=== PATIENT | female | born 1965 | race Caucasian/White ===

== ENCOUNTER 2018-01-10 01:27 | Day surgery (SDC) | payer OTHER ==
[2018-01-10] MEDS ORDERED: PROPOFOL 10 MG/ML VIAL IV ONE (01:28)
[2018-01-10] MEDS ORDERED: KETOROLAC 30 MG/ML VIAL IVP ONE (01:28)
[2018-01-10] MEDS ORDERED: GLYCOPYRROLATE 0.2 MG/ML ML IV ONE (01:28)
[2018-01-10] MEDS ORDERED: ROCURONIUM BROMIDE 50MG/5ML VIAL IV ONE (01:28)
[2018-01-10] MEDS ORDERED: BUPIVACAINE 0.25% W/EPI MPF 30ML VIAL IVP ONE (01:28)
[2018-01-10] MEDS ORDERED: FENTANYL PF 100MCG/2ML VIAL IV ONE (01:28)
[2018-01-10] MEDS ORDERED: NEOSTIGMINE 1 MG/1 ML,10ML VIAL IV ONE (01:28)
[2018-01-10] MEDS ORDERED: ACETAMINOPHEN 1,000 MG/100 ML BTL IV ONE (01:28)
[2018-01-10] MEDS ORDERED: MIDAZOLAM HCL 2MG/2ML VIAL IV ONE (01:28)
[2018-01-10] MEDS ORDERED: SEVOFLURANE 250 ML INH ONE (01:28)
[2018-01-10] MEDS ORDERED: MECLIZINE 25 MG TABLET PO ONE (01:28)
[2018-01-10] MEDS ORDERED: SUCCINYLCHOLINE 20 MG/ML 10ML IVP ONE (01:28)
[2018-01-10] MEDS ORDERED: METOCLOPRAMIDE HCL 10 MG/2 ML VIAL IVP ONE (01:28)
[2018-01-10] MEDS ORDERED: LIDOCAINE 2% MDV (20MG/ML) 20ML VIAL IV ONE (01:28)
[2018-01-10] MEDS ORDERED: METOCLOPRAMIDE 10 MG TABLET PO ONE (01:28)
[2018-01-10] MEDS ORDERED: FAMOTIDINE 20MG TABLET PO ONE (01:28)
[2018-01-10] MEDS ORDERED: ONDANSETRON HCL IV 4 MG/2 ML VIAL IVP ONE ×2 (01:28→01:49)
[2018-01-10] MEDS ORDERED: MAGNESIUM HYDROXIDE/AL HYDROX 30 ML, LIDOCAINE VISC 2% 15ML 15 ML PO ONE ×2 (01:46)
--- NOTE | 2018-01-10 01:50 | Emergency Department Record ---
History of Present Illness - General Chief Complaint: Chest Pain Stated Complaint: CHEST PAIN Time Seen by Provider: 01/10/18 01:38 Source: Patient Mode of Arrival: Ambulatory Limitations: No limitations - History of Present Illness Initial Comments: The patient is here due to an episode of epigastric pain that occurred about 2 hours ago. The onset was at rest. The pain is described as severe with radiation to the back. She did have nausea, sweating and SOB with it at times. The patient did vomit once after the pain onset and did feel better. Now the pain has pretty much resolved. She has no hx of any cardiac issues and no hx of CP with exertion. MD Complaint: Other Onset/Timin -: Hour(s) Onset: After eating, During rest Pain Location: Epigastric Severity: Moderate Consistency: Now resolved Worsens With: Nothing - Related Data Home Medications Medication Instructions Recorded Confirmed Last Taken Atorvastatin Calcium 10 mg PO DAILY 01/10/18 01/10/18 Unknown Budesonide/Formoterol Fumarate 1 puff INH QPM 01/10/18 01/10/18 Unknown [Symbicort 80-4.5 Mcg Inhaler] Levothyroxine Sodium 50 mcg PO DAILY 01/10/18 01/10/18 Unknown Metoprolol Succinate [Toprol Xl] 50 mg PO DAILY 01/10/18 01/10/18 Unknown Allergies Allergy/AdvReac Type Severity Reaction Status Date / Time No Known Drug Allergies Allergy Verified 01/10/18 01:35 Travel Screening - Travel/Exposure Within Last 30 Days Have you traveled within the last 30 days?: No - Travel/Exposure Within Last Year Have you traveled outside the [place] in the last year?: No - Additonal Travel Details Have you been exposed to anyone with a communicable illness?: No - Travel Symptoms Symptom Screening: None Review of Systems Constitutional: Denies: Chills, Fever Eyes: Denies: Eye discharge ENT: Denies: Congestion Respiratory: Denies: Cough, Dyspnea Cardiovascular: Denies: Arrhythmia, Dyspnea on exertion Endocrine: Denies: Fatigue Gastrointestinal: Reports: Abdominal pain, Nausea, Vomiting. Denies: Diarrhea Genitourinary: Denies: Dysuria Musculoskeletal: Denies: Arthralgia Past Medical History - SOCIAL HISTORY Smoking Status: Current every day smoker Alcohol Use: None Drug Use: None - RESPIRATORY Hx Respiratory Disorders: No - CARDIOVASCULAR Hx Cardio Disorders: Yes Hx Hypertension: Yes - NEURO Hx Neuro Disorders: No - GI Hx GI Disorders: No - Hx Genitourinary Disorders: No - ENDOCRINE Hx Endocrine Disorders: Yes Hx Thyroid Disease: Yes - MUSCULOSKELETAL Hx Musculoskeletal Disorders: No - PSYCH Hx Psych Problems: No - HEMATOLOGY/ONCOLOGY Hx Hematology/Oncology Disorders: No Family Medical History Any Significant Family History?: No Family Hx Comment (NOT TO BE USED IN PLACE OF ITEMS BELOW): father had open heart surgery. CA-sister Physical Exam - General General Appearance: Alert, Oriented x3, Cooperative, No acute distress - Head Head exam: Atraumatic, Normocephalic, Normal inspection - Eye Eye exam: Normal appearance, PERRL - ENT Throat exam: Normal inspection. negative: Tonsillar erythema, Tonsillar exudate - Neck Neck exam: Normal inspection, Full ROM. negative: Tenderness - Respiratory Respiratory exam: Normal lung sounds bilaterally. negative: Respiratory distress - Cardiovascular Cardiovascular Exam: Regular rate, Normal rhythm, Normal heart sounds - GI/Abdominal GI/Abdominal exam: Soft, Normal bowel sounds. negative: Tenderness - Extremities Extremities exam: Normal inspection, Full ROM, Normal capillary refill. negative: Tenderness Image of Full Body: 1 - Area of pain and tenderness. - Neurological Neurological exam: Alert. negative: Motor sensory deficit Course Vital Signs 01/10/18 01:28 Temperature 97.6 F Pulse Rate 58 L Respiratory 20 Rate Blood Pressure 159/94 Pulse Ox 99 - Reevaluation(s) Reevaluation #1: The patient states the pain in the epigastric area did return. Now it is tender in the area also. We will give her some Dilaudid for pain. 01/10/18 02:07 Reevaluation #2: The patient did develop more of the epigastric pain. It is a lot better now after Dilaudid and a GI cocktail. I did do a 2nd EKG during the pain and it appears WNL and exactly like the first EKG. I do believe the pain is from the patient's gallbladder and will most likely keep the patient in the ER for an US at 7am. 01/10/18 02:25 Reevaluation #3: The patient is doing well. The CT did demonstrate gallstones and the pain did return earlier but did resolve with a 2nd dose of Dilaudid. The patient will receive an abdominal US this AM and then possibly a surgical consult. 01/10/18 06:26 Reevaluation #4: I did discuss the case with Dr. Summers and he is aware of the patient and the US this AM. The patient's care will be turned over to Dr. Waddell at 7am due to shift change. 01/10/18 06:43 Medical Decision Making - Data Complexity MDM Data: Labs Ordered and/or Reviewed, X-Ray Ordered and/or Reviewed, EKG Ordered and/or Reviewed - Lab Data Result diagrams: 01/10/18 01:30 01/10/18 01:30 - EKG Data -: EKG Interpreted by Me EKG: No Acute Changes, Normal EKG - Radiology Data Radiology results: Report reviewed (CT: Gallstones, O/W neg.) Disposition Forms: Patient Portal Access Quality - Quality Measures Quality Measures: N/A - Blood Pressure Screening View Details: Yes Does Patient Have Any of the Following: No Blood Pressure Classification: Hypertensive Reading Systolic Measurement: 159 Diastolic Measurement: 94 Screening for High Blood Pressure: < First Hypertensive BP, F/U Documented > [ [id number]] First Hypertensive Follow-up Interventions: Referral to alternative/primary care provider.
[2018-01-10 01:52] LABS: BASO % 0.3 % (0-6); EOS % 3.6 % (0-6); HEMATOCRIT 41.5 % (35.0-47.0); HEMOGLOBIN 13.7 gm/dl (11.6-16.0); LYMPH % 22.8 % (16-45); MEAN PLATELET VOLUME 9.3 fl (7.4-10.4); MONO % 6.3 % (0-9); PLATELET COUNT 292 K/uL (130-400); RED BLOOD COUNT 4.56 M/uL (3.80-5.40); RED CELL DISTRIBUTION WIDTH 12.4 % (11.5-14.5); WHITE BLOOD COUNT W/O DIFF 11.2 K/uL (4.2-12.2)
[2018-01-10 02:03] LABS: INR 0.9; PARTIAL THROMBOPLASTIN TIME 26.6 SECONDS (24.5-39.1)
[2018-01-10] MEDS ORDERED: HYDROMORPHONE HCL 2 MG/ML VIAL IVP ONE ×3 (02:08→08:23)
[2018-01-10 02:10] LABS: ALBUMIN 4.5 g/dL (4.0-5.0); ALKALINE PHOSPHATASE 78 U/L (35-104); ALT/SGPT 37 U/L (<33); AST/SGOT 65 U/L (10.0-35.0); BLOOD UREA NITROGEN 14 mg/dL (6-20); CREATININE 0.5 mg/dL (0.5-0.9); EST GLOMERULAR FILTRATION RATE > 60 mL/min; GLUCOSE,RANDOM 109 mg/dL (74-109); LIPASE 44 U/L (13-60); TOTAL PROTEIN 7.2 g/dL (6.6-8.7)
[2018-01-10 02:11] LABS: BILIRUBIN,DIRECT < 0.2 mg/dL (0-0.3)
[2018-01-10 02:24] LABS: CKMB 1.4 ng/mL (<3.77)
[2018-01-10 02:36] LABS: CREATINE PHOSPHOKINASE 61 U/L (26-192)
[2018-01-10 05:26] LABS: CKMB 1.3 ng/mL (<3.77)
--- NOTE | 2018-01-10 07:51 | Emergency Department Record ---
History of Present Illness - General Chief Complaint: Chest Pain Stated Complaint: CHEST PAIN Time Seen by Provider: 01/10/18 01:38 Source: Patient Mode of Arrival: Ambulatory Limitations: No limitations - History of Present Illness Initial Comments: 53 yo female patient signed out at 7am by Dr Neves. The chart, labs, and CT were reviewed The patient was seen and examined. She reports mild, persistent RUQ and Epigastric pain. She declines pain medication at this time. CT demonstrated multiple gall stones. Dr Neves contacted Dr Summers. US was ordered. Onset/Timin -: Hour(s) Location: Epigastric, RUQ Radiation: Back, Chest, Epigastric, RUQ Severity: Moderate Consistency: Now resolved Improves With: Nothing Worsens With: Eating - Related Data LMP (females 10-50): other Patient : No Home Medications Medication Instructions Recorded Confirmed Last Taken Atorvastatin Calcium 10 mg PO DAILY 01/10/18 01/10/18 Unknown Budesonide/Formoterol Fumarate 1 puff INH QPM 01/10/18 01/10/18 Unknown [Symbicort 80-4.5 Mcg Inhaler] Levothyroxine Sodium 50 mcg PO DAILY 01/10/18 01/10/18 Unknown Metoprolol Succinate [Toprol Xl] 50 mg PO DAILY 01/10/18 01/10/18 Unknown Allergies Allergy/AdvReac Type Severity Reaction Status Date / Time No Known Drug Allergies Allergy Verified 01/10/18 01:35 Travel Screening - Travel/Exposure Within Last 30 Days Have you traveled within the last 30 days?: No - Travel/Exposure Within Last Year Have you traveled outside the [place] in the last year?: No - Additonal Travel Details Have you been exposed to anyone with a communicable illness?: No - Travel Symptoms Symptom Screening: None Review of Systems Constitutional: Denies: Chills, Fever Eyes: Denies: Eye discharge ENT: Denies: Congestion Respiratory: Denies: Cough, Dyspnea Cardiovascular: Denies: Arrhythmia, Dyspnea on exertion Endocrine: Denies: Fatigue Gastrointestinal: Reports: Abdominal pain, Nausea, Vomiting. Denies: Diarrhea Genitourinary: Denies: Dysuria Musculoskeletal: Denies: Arthralgia Past Medical History - SOCIAL HISTORY Smoking Status: Current every day smoker Alcohol Use: None Drug Use: None - RESPIRATORY Hx Respiratory Disorders: No - CARDIOVASCULAR Hx Cardio Disorders: Yes Hx Hypertension: Yes - NEURO Hx Neuro Disorders: No - GI Hx GI Disorders: No - Hx Genitourinary Disorders: No - ENDOCRINE Hx Endocrine Disorders: Yes Hx Thyroid Disease: Yes - MUSCULOSKELETAL Hx Musculoskeletal Disorders: No - PSYCH Hx Psych Problems: No - HEMATOLOGY/ONCOLOGY Hx Hematology/Oncology Disorders: No Family Medical History Any Significant Family History?: No Family Hx Comment (NOT TO BE USED IN PLACE OF ITEMS BELOW): father had open heart surgery. CA-sister Physical Exam - General General Appearance: Alert, Oriented x3, Cooperative, No acute distress Limitations: No limitations - Head Head exam: Atraumatic, Normal inspection - Eye Eye exam: Normal appearance. negative: Conjunctival injection, Scleral icterus - ENT ENT exam: Normal exam Ear exam: Normal external inspection Nasal Exam: Normal inspection Mouth exam: Normal external inspection - Neck Neck exam: Normal inspection - Respiratory Respiratory exam: Normal lung sounds bilaterally. negative: Respiratory distress - Cardiovascular Cardiovascular Exam: Regular rate, Normal rhythm, Normal heart sounds - GI/Abdominal GI/Abdominal exam: Soft, Tenderness (tender RUQ and Epigastric but very soft) - Rectal Rectal exam: Deferred - exam: Deferred - Extremities Extremities exam: Normal inspection. negative: Pedal edema - Neurological Neurological exam: Alert, Oriented X3 - Psychiatric Psychiatric exam: Normal affect, Normal mood - Skin Skin exam: Dry, Intact, Normal color, Warm Course Vital Signs 01/10/18 01/10/18 01/10/18 01:28 02:18 03:19 Temperature 97.6 F Pulse Rate 58 L Pulse Rate [ Pension Agent ] Pulse Rate [ 62 58 L Pulse Ox Probe] Respiratory 20 20 20 Rate Blood Pressure 159/94 Blood Pressure 137/81 122/85 [Right Arm] Pulse Ox 99 95 98 01/10/18 01/10/18 05:15 06:43 Temperature Pulse Rate Pulse Rate [ 59 L Pension Agent ] Pulse Rate [ 59 L 70 Pulse Ox Probe] Respiratory 20 20 Rate Blood Pressure Blood Pressure 143/78 109/68 [Right Arm] Pulse Ox 98 96 - Reevaluation(s) Reevaluation #1: 01/10/18 08:23 The patient returned from US The pain is returning. 01/10/18 08:45 The US was reviewed. Multiple, large, non mobile stones with possible stone in the neck of the GB. CBD normal. The patient continues to have waves of pain. This was discussed with Dr Summers. He will plan on surgery this morning. The patient agrees with the plan for surgery. She has been NPO since 11pm. IVF were provided as well. Medical Decision Making - Lab Data Result diagrams: 01/10/18 01:30 01/10/18 01:30 Lab Results 01/10/18 01/10/18 01/10/18 Range/Units 01:30 01:30 01:30 WBC 11.2 (4.2-12.2) K/uL RBC 4.56 (3.80-5.40) M/uL Hgb 13.7 (11.6-16.0) gm/dl Hct 41.5 (35.0-47.0) % MCV 91.0 (81-97) fl MCH 30.0 (27-33) pg MCHC 33.0 (32-36) g/dl RDW 12.4 (11.5-14.5) % Plt Count 292 (130-400) K/uL MPV 9.3 (7.4-10.4) fl Gran % 67.0 (47-80) % Lymphocytes % 22.8 (16-45) % Monocytes % 6.3 (0-9) % Eosinophils % 3.6 (0-6) % Basophils % 0.3 (0-6) % PT 10.0 (9.5-12.1) SECONDS INR 0.9 APTT 26.6 (24.5-39.1) SECONDS Sodium 145 (136-145) mmol/L Potassium 3.6 (3.4-4.5) mmol/L Chloride 98 (98-107) mmol/L Carbon Dioxide 30.0 H (22-29) mmol/L Anion Gap 17.0 H (7-16) BUN 14 (6-20) mg/dL Creatinine 0.5 (0.5-0.9) mg/dL Estimated GFR > 60 mL/min Random Glucose 109 (74-109) mg/dL Calcium 9.4 (8.6-10.0) mg/dL Total Bilirubin 0.30 (0.2-1.0) mg/dL Direct Bilirubin < 0.2 (0-0.3) mg/dL AST 65 H (10.0-35.0) U/L ALT 37 H (<33) U/L Alkaline Phosphatase 78 (35-104) U/L Creatine Kinase 61 (26-192) U/L CK-MB (CK-2) 1.4 (<3.77) ng/mL Troponin T < 0.010 (0-0.010) ng/mL Total Protein 7.2 (6.6-8.7) g/dL Albumin 4.5 (4.0-5.0) g/dL Lipase 44 (13-60) U/L 01/10/18 01/10/18 Range/Units 01:46 05:03 WBC (4.2-12.2) K/uL RBC (3.80-5.40) M/uL Hgb (11.6-16.0) gm/dl Hct (35.0-47.0) % MCV (81-97) fl MCH (27-33) pg MCHC (32-36) g/dl RDW (11.5-14.5) % Plt Count (130-400) K/uL MPV (7.4-10.4) fl Gran % (47-80) % Lymphocytes % (16-45) % Monocytes % (0-9) % Eosinophils % (0-6) % Basophils % (0-6) % PT (9.5-12.1) SECONDS INR APTT (24.5-39.1) SECONDS Sodium (136-145) mmol/L Potassium (3.4-4.5) mmol/L Chloride (98-107) mmol/L Carbon Dioxide (22-29) mmol/L Anion Gap (7-16) BUN (6-20) mg/dL Creatinine (0.5-0.9) mg/dL Estimated GFR mL/min Random Glucose (74-109) mg/dL Calcium (8.6-10.0) mg/dL Total Bilirubin Cancelled (0.2-1.0) mg/dL Direct Bilirubin Cancelled (0-0.3) mg/dL AST Cancelled (10.0-35.0) U/L ALT Cancelled (<33) U/L Alkaline Phosphatase Cancelled (35-104) U/L Creatine Kinase (26-192) U/L CK-MB (CK-2) 1.3 (<3.77) ng/mL Troponin T < 0.010 (0-0.010) ng/mL Total Protein Cancelled (6.6-8.7) g/dL Albumin Cancelled (4.0-5.0) g/dL Lipase Cancelled (13-60) U/L Disposition Disposition: Discharge Clinical Impression: Biliary colic, Gall stones Disposition: Home, Self-Care Condition: (1) Good Additional Instructions: Discharged to outpatient surgery Forms: Patient Portal Access Time of Disposition: 08:47 Quality - Quality Measures Quality Measures: N/A - Blood Pressure Screening Does Patient Have Any of the Following: Active Dx of HTN Blood Pressure Classification: Hypertensive Reading Systolic Measurement: 159 Diastolic Measurement: 94 Screening for High Blood Pressure: Patient Exclusion, Hx of HTN [G9744]
[2018-01-10] MEDS ORDERED: 0.9 % SODIUM CHLORIDE 1,000 ML BAG IV ONE (07:59)
--- NOTE | 2018-01-10 10:12 | CT SCAN REPORT ---
EXAM: EMERGENCY CT OF THE ABDOMEN AND PELVIS WITHOUT CONTRAST HISTORY: EPIGASTRIC PAIN, ABDOMINAL AND BACK PAIN, ACID REFLUX. TECHNIQUE: Axial CT scan of the abdomen and pelvis was performed without oral or IV contrast. A preliminary report was provided by [facility]. Comparison: CT of the abdomen and pelvis 05/27/17. FINDINGS: There again appear to be multiple low attenuation gallstones in the gallbladder similar to before. No adjacent pericholecystic inflammatory change seen to suggest acute cholecystitis currently. There again appear to be some tiny currently nonobstructing intrarenal calculi bilaterally. No hydronephrosis or hydroureter is seen on either side. As such it is somewhat difficult to follow the entire course of both ureters in their nondilated state throughout the retroperitoneum and pelvis, but no definite ureteral calculus seen on either side and no bladder calculus evident. There again appears to be a low density peripelvic mass central portion of the right kidney incompletely evaluated without IV contrast, but appearing unchanged from before, but again measuring about 1.8 cm in size and presumably a renal cyst as previously reported. Evaluation of the bowel and viscera are quite limited without oral or IV contrast. Given this limitation, no definite hepatic, splenic, adrenal, pancreatic, or left renal mass identified. Postop changes right inguinal region again seen as before. Small periumbilical anterior abdominal wall hernia containing adipose tissue, but no bowel. I believe the appendix is visualized and appears of normal caliber with no appendicitis evident. The lung bases appear clear. No free intraperitoneal air or free intraperitoneal fluid identified. The stomach is quite distended currently. This is nonspecific and may represent a relative gastric ileus although clinical correlation as to any suspicion of gastric outlet obstruction suggested. No free intraperitoneal air or free intraperitoneal fluid evident. Degenerative disk disease in the lower lumbar spine. Mild lumbar levoscoliosis. IMPRESSION: 1. APPEARANCE CONSISTENT WITH NONCALCIFIED GALLSTONES IN THE GALLBLADDER BEFORE. 2. TINY BILATERAL NONOBSTRUCTING INTRARENAL CALCULI. NO DEFINITE HYDRONEPHROSIS OR URETERAL CALCULUS SEEN. 3. PROBABLE CENTRAL RIGHT RENAL CYST BEFORE. 4. SMALL PERIUMBILICAL ANTERIOR ABDOMINAL WALL HERNIA CONTAINING ADIPOSE TISSUE , BUT NO BOWEL. 5. POSTOP CHANGES RIGHT INGUINAL REGION BEFORE. 6. GASTRIC DISTENTION. 7. DEGENERATIVE CHANGES LOWER LUMBAR SPINE WITH A MILD LUMBAR LEVOSCOLIOSIS. JOB NUMBER: [id number] [facility]
--- NOTE | 2018-01-10 10:30 | ULTRASOUND REPORT ---
EXAM: COMPLETE ABDOMEN ULTRASOUND HISTORY: EPIGASTRIC PAIN, NONCALCIFIED GALLSTONES ON ABDOMEN CT FROM EARLIER TODAY. TECHNIQUE: Complete real-time ultrasound examination of the abdomen was obtained. Comparison: No prior abdomen ultrasound. Comparison is made with the abdomen CT from a short time earlier this morning on 01/10/18. FINDINGS: The pancreas appears negative with no pancreatic mass or peripancreatic fluid collection evident. The abdominal aorta appears negative with on aneurysm seen. The IVC was negative as seen. The liver appears negative with no hepatic mass or intrahepatic biliary dilatation seen. The right kidney measures 10.5 cm in length with no hydronephrosis evident. There is an approximately 1.8 cm sonolucent mass centrally in the right kidney consistent with a simple cyst, also noted on the CT from earlier today. Multiple echogenic foci with shadowing are seen within the gallbladder consistent with numerous gallstones. These obscure the posterior aspect of the gallbladder wall, but as visualized there is some mild diffuse prominence of the gallbladder wall. No actual pericholecystic fluid collection seen. The common duct is within normal limits in caliber. On one image there was a suggestion of a tiny common duct calculus although this was not consistently seen and, as mentioned earlier, no dilatation of the common duct is evident. The gallstones within the gallbladder for the most part did not move much when the patient was placed in different positions and there probably is a consistently seen stone in the region of the gallbladder neck. The left kidney measures 11 cm in length with no hydronephrosis evident. The spleen appears negative. IMPRESSION: 1. FAIRLY EXTENSIVE CHOLELITHIASIS PROBABLY INCLUDING A STONE CONSISTENTLY SEEN IN THE GALLBLADDER NECK. CLINICAL CORRELATION TO ACUTE CHOLECYSTITIS SUGGESTED. 2. NO BILIARY DILATATION SEEN. ON ONE IMAGE THERE WAS A SUGGESTION OF A SMALL CALCULUS IN THE LOWER COMMON DUCT ALTHOUGH NO DILATATION OF THE COMMON BILE DUCT EVIDENT. 3. APPROXIMATELY 1.8 CM PARAPELVIC RIGHT RENAL CYST ALSO SEEN ON THE CT FROM EARLIER TODAY. NO HYDRONEPHROSIS IN EITHER KIDNEY. 4. THE REMAINDER OF THE ABDOMEN ULTRASOUND APPEARED NEGATIVE. JOB NUMBER: [id number] [facility]
--- NOTE | 2018-01-11 13:40 | Operative Note ---
DATE OF SURGERY: 01/10/2018 Surgeon: Sinan Summers DO PREOPERATIVE DIAGNOSIS: Cholelithiasis with chronic cholecystitis. POSTOPERATIVE DIAGNOSIS: Cholelithiasis with chronic cholecystitis. OPERATION: Laparoscopic cholecystectomy. Indication: The patient is a 52-year-old female who is having ongoing right subcostal postprandial pain. She had a prior CT scan which did show cholelithiasis. She came into the ER last night with more pain. Repeat CT scan and ultrasound both were done. This did show what appeared to be cholelithiasis impacted in the neck of the gallbladder. She had a clinical history of recurrent biliary colic. We did discuss cholecystectomy versus medical management. She desired surgical intervention. Risks include but are not limited to bleeding, infection, ductal injury, possible conversion to open, postoperative bile leak. She understood this fully. PROCEDURE: Thereafter, consent was signed and questions answered. She was taken to the operating room and placed in a supine position. General anesthesia was administered per the department of anesthesia. The patient's abdomen was prepped and draped in the usual sterile fashion. Preop adequate timeout was performed. She did receive preoperative DVT prophylaxis as well as antibiotics. At this time, the infraumbilical region was anesthetized with a total of 5 mL of 0.25% Sensorcaine with epinephrine. A 2 cm infraumbilical incision was made. This was carried down to the anterior rectus fascia. This was incised. Raman clamps were placed on the fascial edges and brought up into the wound. Stay sutures of 0 Vicryl were placed. Posterior rectus sheath was identified and incised. The peritoneal cavity was entered bluntly. At this time, a 10 mm blunt Lianet port was placed. Adequate pneumoperitoneum was established. Under direct visualization, additional 5 mm epigastric and two 5 mm right subcostal ports were placed. The gallbladder was identified. It was retracted in a cephalad and lateral direction opening up the angle of Calot. The hepatocystic triangle was thoroughly dissected out. The distal half of the gallbladder was released from the cystic plate. The cystic duct and cystic artery were circumferentially skeletonized. We obtained a critical view of safety. The cystic artery was taken down with the Suman harmonic. The cystic duct was triply clipped cut in standard fashion. The gallbladder was then off the liver bed with the Suman harmonic. This was then retrieved through the umbilical port. The right upper quadrant was then rechecked and found to be hemostatic. No bleeding, no bile leak. No bowel injury noted. The patient was leveled out. Pneumoperitoneum was released. All ports were removed. The fascia was closed with 0 Vicryl in a [id number] fashion. The skin at all 4 ports was closed with 4-0 Vicryl. The patient was taken to the recovery room in satisfactory condition. FINDINGS AT THE TIME OF SURGERY: Chronic cholecystitis. CC: DO GERBER Germain
== END 2018-01-10 13:42 | disposition home or self-care (01) ==
LOC: ER 01:27 → SUR 09:30
PROVIDERS: ATTEND Surgery
DX: K80.10 Calculus of gallbladder with chronic cholecystitis without obstruction (principal); K21.9 Gastro-esophageal reflux disease without esophagitis; E78.00 Pure hypercholesterolemia, unspecified; J45.909 Unspecified asthma, uncomplicated; E03.9 Hypothyroidism, unspecified; F17.210 Nicotine dependence, cigarettes, uncomplicated
CPT/HCPCS: 74176; 76700; 80048; 80076; 82550; 82553; 83690; 84484; 85025; 85610; 85730; 93005; 93010; 96374; 96375; 96376; 99285; J0330; J1885; J2405; J2710; J2765; J3490; J7030

== ENCOUNTER 2018-07-14 10:56 | Day surgery (SDC) | payer OTHER ==
[2018-07-14] MEDS ORDERED: LIDOCAINE 2% MDV (20MG/ML) 20ML VIAL IV ONE (10:57)
[2018-07-14] MEDS ORDERED: MIDAZOLAM HCL 2MG/2ML VIAL IV ONE (10:57)
[2018-07-14] MEDS ORDERED: PROPOFOL 10 MG/ML VIAL IV ONE (10:57)
--- NOTE | 2018-07-15 08:10 | Operative Note ---
DATE OF SURGERY: 07/14/18 OPERATION: COLONOSCOPY with cold snare polypectomy x3. PREOPERATIVE DIAGNOSIS: Family history of rectal cancer and screening in high-risk individual. POSTOPERATIVE DIAGNOSES: 1. Moderately severe diverticulosis. 2. Sigmoid colon polyps x2. 3. Transverse colon polyp x1. PREPARATION QUALITY: Good to excellent. ESTIMATED BLOOD LOSS: Minimum. SPECIMENS: Sigmoid colon polyp x2 and transverse polyp. PROCEDURE: After informed consent was obtained from the patient, she was placed in the left lateral decubitus position in the endoscopy suite, sedated and monitored by the department of anesthesia. Digital rectal exam was unremarkable. A well-lubricated [id number] colonoscope was inserted into the rectum and advanced to the cecum. The cecum, cecal bulb, ileocecal valve, and appendiceal orifice were unremarkable. The ascending colon was also unremarkable. The transverse colon revealed a sessile polyp removed with a cold snare. Minimal bleeding was noted. The descending colon was unremarkable. The sigmoid colon revealed 2 polyps each approximately 4-5 mm in diameter removed with a cold snare. Minimal bleeding was noted at the sites. There were moderate sigmoid diverticular changes as well. The rectum was unremarkable in forward and in J-turn views. The endoscope was straightened, the rectal ampulla deflated, and the endoscope was removed. RECOMMENDATIONS: I suggest the patient follow a high-fiber diet. She was encouraged to stop smoking. I would recommend repeat colonoscopy in 3-5 years pending tissue histology. As always, thank you for allowing me to participate in the healthcare of your patients. CC: DO GERBER Germain
== END 2018-07-14 12:38 | disposition home or self-care (01) ==
LOC: HOP 10:56
PROVIDERS: ATTEND Internal Medicine Gastroenterology
DX: Z12.11 Encounter for screening for malignant neoplasm of colon (principal); Z80.0 Family history of malignant neoplasm of digestive organs; D12.5 Benign neoplasm of sigmoid colon; K57.30 Diverticulosis of large intestine without perforation or abscess without bleeding; I10 Essential (primary) hypertension